=== PATIENT | male | born 1995 | race Caucasian/White ===

== ENCOUNTER 2016-11-12 05:33 | Emergency (ER) | payer MEDICAID ==
[2016-11-12 06:05] VITALS: O2SAT 100
--- NOTE | 2016-11-12 07:27 | ED PDOC ---
HPI: CCC, URI, Sore Throat Time Seen by Provider: 11/12/16 07:06 Chief Complaint (Nursing): ENT Problem Chief Complaint (Provider): ENT Problem History Per: Patient History/Exam Limitations: no limitations Onset/Duration Of Symptoms: Days Current Symptoms Are (Timing): Still Present Location Of Pain: Throat Sick Contacts (Context): None Associated Symptoms: Fever, Cough, Sputum Ear Symptoms: Bilateral: None Severity: Moderate Additional Complaint(s): Patient is a 21 year old male who presents to ED for evaluation of a sore throat for 2 days. Patient states pain is moderate -severe, unable to swallow or eat secondary to pain. Patient also notes a fever and cough, with occasional blood tinged sputum. Denies chest pain or shortness of breath. Denies neck pain , rash, abdominal pain, nausea or vomiting. Past Medical History Reviewed: Historical Data, Nursing Documentation, Vital Signs Vital Signs: Last Vital Signs Temp 99.2 F 11/12/16 09:00 Pulse 88 11/12/16 09:00 Resp 14 11/12/16 09:00 BP 122/68 11/12/16 09:00 Pulse Ox 100 11/12/16 09:14 - Medical History PMH: Asthma Denies: Chronic Kidney Disease - Surgical History Surgical History: No Surg Hx - Family History Family History: States: Unknown Family Hx - Living Arrangements Living Arrangements: With Family - Home Medications Home Medications: Ambulatory Orders Medication Instructions Recorded No Known Home Med 02/05/16 - Allergies Allergies/Adverse Reactions: Allergies Allergy/AdvReac Type Severity Reaction Status Date / Time No Known Allergies Allergy Verified 07/08/16 11:35 Review of Systems Constitutional: Positive for: Fever, Chills ENT: Positive for: Throat Pain, Throat Swelling. Negative for: Ear Pain Cardiovascular: Negative for: Chest Pain Respiratory: Positive for: Cough, Sputum. Negative for: Shortness of Breath Gastrointestinal: Negative for: Nausea, Vomiting, Abdominal Pain, Constipation Genitourinary Male: Negative for: Dysuria Musculoskeletal: Negative for: Neck Pain Skin: Negative for: Rash Physical Exam - Reviewed Nursing Documentation Reviewed: Yes Vital Signs Reviewed: Yes - Physical Exam Appears: Positive for: Non-toxic, No Acute Distress (well appearing, resting in bed in NAD, normal phonation) Skin: Positive for: Normal Color, Warm. Negative for: Rash Eye Exam: Positive for: Normal appearance ENT: Positive for: TM Is/Are (clear bilaterally ), Pharyngeal Erythema, Tonsillar Exudate, Other (uvula midline). Negative for: Tonsillar Swelling Neck: Positive for: Normal, Painless ROM, Supple (tender cervical LAD) Cardiovascular/Chest: Positive for: Tachycardia. Negative for: Murmur Respiratory: Positive for: Normal Breath Sounds. Negative for: Respiratory Distress Gastrointestinal/Abdominal: Positive for: Soft. Negative for: Tenderness, Mass , Distended Extremity: Positive for: Normal ROM Neurologic/Psych: Positive for: Alert, Oriented - ECG O2 Sat by Pulse Oximetry: 100 (RA) Pulse Ox Interpretation: Normal Medical Decision Making Medical Decision Making: Time: 0710 Initial impression: Strep vs viral pharyngitis Initial plan: -- Rapid strep -- Motrin PO Patient has fever, tender cervical LAD and exudate and therefore will treat as strep pharyngitis. Will give penicillin IM in ED. Scribe Attestation: Documented by Humaira Calderón acting as a scribe for Ena Powers MD MD Scribe Attestation: All medical record entries made by the Scribe were at my direction and personally dictated by me. I have reviewed the chart and agree that the record accurately reflects my personal performance of the history, physical exam, medical decision making, and the department course for this patient. I have also personally directed, reviewed, and agree with the discharge instructions and disposition. 9:13AM On reevaluation after motrin, patient is eating tray in bed and well appearing. He is phonating normally with normal vitals. He reports feeling better. Will dc to follow-up with PMD. Disposition - Clinical Impression Clinical Impression: Streptococcal sore throat - Disposition Disposition: Routine/Home Disposition Time: 07:30 Condition: GOOD Additional Instructions: Tylenol or motrin for pain. Follow-up with PMD within 2 days. Return to ED if condition worsens. Instructions: Strep Throat (ED) Forms: [facility] ED School/Work Excuse
[2016-11-12] MEDS ORDERED: Penicillin G Benzathine 1.2 Mill Unit/2 ml Syr IM ONE (08:48)
[2016-11-12 09:39] VITALS: BP 122/68; PULSE 88; RESP 14; TEMP 99.2
== END 2016-11-12 10:09 | disposition home or self-care (01) ==
LOC: H.ER 05:33
DX: J02.0 Streptococcal pharyngitis (principal); J45.909 Unspecified asthma, uncomplicated; R50.9 Fever, unspecified
CPT/HCPCS: 87070; 87430; 96372; 99283; J0561

== ENCOUNTER 2016-11-13 04:13 | Emergency (ER) | payer MEDICAID ==
[2016-11-13] MEDS ORDERED: Sodium Chloride 0.9% 1,000 ML IV STA (04:45)
--- NOTE | 2016-11-13 05:27 | ED PDOC ---
HPI: General Adult Time Seen by Provider: 11/13/16 04:30 Chief Complaint (Nursing): ENT Problem Chief Complaint (Provider): sore throat History Per: Patient History/Exam Limitations: no limitations Onset/Duration Of Symptoms: Hrs Have you had recent travel within the past 21 days to any of the following countries: [place], [place], [place] or [place]?: No Current Symptoms Are (Timing): Still Present Recently: Seen In ED Additional Complaint(s): 21yo male returns to the ED with c/o sore throat with associated difficulty swallowing. Patient was seen in this ED at 0700 yesterday and discharged with diagnosis of strep throat. Patient was given IM penicillin in the ED prior to d/ c. Patient further reports having fever with difficulty swallowing Tylenol tablets at home. Notes some mild difficulty breathing. Past Medical History Reviewed: Historical Data, Nursing Documentation, Vital Signs Vital Signs: Last Vital Signs Temp 99.8 F H 11/13/16 06:07 Pulse 90 11/13/16 06:07 Resp 20 11/13/16 06:07 BP 131/54 L 11/13/16 06:07 Pulse Ox 99 11/13/16 06:13 - Medical History PMH: Asthma Denies: Chronic Kidney Disease - Surgical History Surgical History: No Surg Hx - Family History Family History: States: Unknown Family Hx - Home Medications Home Medications: Ambulatory Orders Medication Instructions Recorded Ibuprofen [Motrin Tab] 600 mg PO Q6 #30 tab 11/13/16 predniSONE [predniSONE Tab] 40 mg PO DAILY #6 tab 11/13/16 - Allergies Allergies/Adverse Reactions: Allergies Allergy/AdvReac Type Severity Reaction Status Date / Time No Known Allergies Allergy Verified 07/08/16 11:35 Review of Systems ROS Statement: Except As Marked, All Systems Reviewed And Found Negative Constitutional: Positive for: Fever ENT: Positive for: Throat Pain, Other (difficulty swallowing ) Respiratory: Positive for: Other (mild difficulty breathing ) Physical Exam - Reviewed Nursing Documentation Reviewed: Yes Vital Signs Reviewed: Yes - Physical Exam Appears: Positive for: Well, No Acute Distress Head Exam: Positive for: ATRAUMATIC, NORMAL INSPECTION, NORMOCEPHALIC Skin: Positive for: Normal Color, Warm, Dry Eye Exam: Positive for: Normal appearance, EOMI, PERRL ENT: Positive for: Tonsillar Exudate (left sided ), Tonsillar Swelling (b/l enlarged tonsils ), Other (no palpable CLINIQUE COUNTER MANAGER, (+) tender lymphadenopathy ) Neck: Positive for: Normal, Painless ROM, Supple Cardiovascular/Chest: Positive for: Regular Rate, Rhythm. Negative for: Murmur , Tachycardia Respiratory: Positive for: Normal Breath Sounds. Negative for: Wheezing, Respiratory Distress Gastrointestinal/Abdominal: Positive for: Normal Exam, Soft. Negative for: Tenderness Back: Positive for: Normal Inspection Extremity: Positive for: Normal ROM. Negative for: Deformity, Swelling Neurologic/Psych: Positive for: Alert, Oriented - ECG O2 Sat by Pulse Oximetry: 99 Pulse Ox Interpretation: Normal (RA) Medical Decision Making Medical Decision Makin: Impression: strep throat Plan: IVF, solu-medrol 125mg IVP, Toradol 15mg IVP, Tylenol 650mg PO reassess 0612: Patient feeling better and is stable for d/c. Instructed to return to the ED with any worsening or concerning symptoms. Scribe Attestation: Documented by Vani Rodriguez acting as a scribe for González Barrett MD. Provider Scribe Attestation: All medical record entries made by the Scribe were at my direction and personally dictated by me. I have reviewed the chart and agree that the record accurately reflects my personal performance of the history, physical exam, medical decision making, and the department course for this patient. I have also personally directed, reviewed, and agree with the discharge instructions and disposition. Disposition - Clinical Impression Clinical Impression: Strep throat - Patient ED Disposition Is Patient to be Admitted: No - Disposition Referrals: [facility] [Outside] Disposition: Routine/Home Disposition Time: 06:13 Condition: STABLE Prescriptions: Ibuprofen [Motrin Tab] 600 mg PO Q6 #30 tab predniSONE [predniSONE Tab] 40 mg PO DAILY #6 tab Instructions: Strep Throat (ED)
[2016-11-13 06:08] VITALS: BP 131/54; PULSE 90; RESP 20; TEMP 99.8
[2016-11-13 06:13] VITALS: O2SAT 99
== END 2016-11-13 07:11 | disposition home or self-care (01) ==
LOC: H.ER 04:13
DX: J02.0 Streptococcal pharyngitis (principal); J45.909 Unspecified asthma, uncomplicated
CPT/HCPCS: 96374; 96375; 99282; J1885; J2930; J7040

== ENCOUNTER 2017-03-24 11:26 | Emergency (ER) | payer SELFPAY ==
[2017-03-24 11:52] VITALS: RESP 18; TEMP 97.8
--- NOTE | 2017-03-24 13:37 | ED PDOC ---
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 after ext Severity: Mild Previous Symptoms: None Associated Symptoms: None, Other (no n/t/w no bowel or bladder retention or incontinence) Exacerbating Factor(s): Movement, Other (lifting leg) Additional History Per: Patient Additional Complaint(s): pt states mild intermittent anxiety Past Medical History Reviewed: Historical Data, Nursing Documentation, Vital Signs Vital Signs: Last Vital Signs Temp 97.8 F 03/24/17 11:48 Pulse 66 03/24/17 11:48 Resp 18 03/24/17 11:48 BP 121/76 03/24/17 11:48 Pulse Ox 100 03/24/17 11:48 - Medical History PMH: Asthma Denies: Chronic Kidney Disease - Family History Family History: States: Unknown Family Hx - Living Arrangements Living Arrangements: With Family - Social History Current smoker - smoking cessation education provided: No - Home Medications Home Medications: Ambulatory Orders Medication Instructions Recorded Naproxen 500 mg PO BID PRN #20 tab 03/24/17 - Allergies Allergies/Adverse Reactions: Allergies Allergy/AdvReac Type Severity Reaction Status Date / Time No Known Allergies Allergy Verified 03/24/17 11:52 Review of Systems ROS Statement: Except As Marked, All Systems Reviewed And Found Negative Constitutional: Negative for: Fever, Chills Cardiovascular: Positive for: Chest Pain. Negative for: Palpitations, Edema, Light Headedness Respiratory: Negative for: Cough, Shortness of Breath Gastrointestinal: Negative for: Nausea, Vomiting, Abdominal Pain Musculoskeletal: Positive for: Back Pain Neurological: Negative for: Weakness, Numbness, Altered Mental Status, Headache Psych: Positive for: Anxiety. Negative for: Depression, Psychosis, Suicidal ideation Physical Exam - Reviewed Nursing Documentation Reviewed: Yes Vital Signs Reviewed: Yes - Physical Exam Appears: Positive for: Uncomfortable Head Exam: Positive for: ATRAUMATIC, NORMAL INSPECTION, NORMOCEPHALIC Eye Exam: Positive for: Normal appearance Neck: Positive for: Normal, Painless ROM, Supple. Negative for: Decreased ROM, Limited ROM, Trachea Midline Cardiovascular/Chest: Positive for: Regular Rate, Rhythm, Chest Non Tender. Negative for: Edema, Gallop Respiratory: Positive for: Normal Breath Sounds. Negative for: Decreased Breath Sounds, Accessory Muscle Use, Crackles, Rales, Rhonchi, Stridor, Wheezing , Respiratory Distress Pulses-Radial (L): 2+ Pulses-Radial (R): 2+ Gastrointestinal/Abdominal: Positive for: Normal Exam, Bowel Sounds, Soft. Negative for: Tenderness Back: Positive for: Normal Inspection. Negative for: L CVA Tenderness, R CVA Tenderness, Vertebral Tenderness, Decreased ROM Extremity: Positive for: Normal ROM, Other (+ slr on the left). 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 Negative for: Motor/Sensory Deficits - ECG O2 Sat by Pulse Oximetry: 100 Pulse Ox Interpretation: Normal - Other Rad No standard instances X-Ray: Interpreted by Me X-Ray Interpretation: ls xray 5 views no fx or listhesis no sts - Progress ED Course And Treament: sx improved with treatment advise close f/u in medical clinic, naproxen for pain Re-evaluation Time: 14:30 Condition: Improved Disposition - Clinical Impression Clinical Impression: Low back pain, Anxiety - Patient ED Disposition Is Patient to be Admitted: No Counseled Patient/Family Regarding: Studies Performed, Diagnosis, Need For Followup, Rx Given - Disposition Referrals: [facility] [Outside] [facility] [Outside] Disposition: Routine/Home Disposition Time: 14:30 Condition: GOOD Prescriptions: Naproxen 500 mg PO BID PRN #20 tab PRN Reason: Pain, Moderate (4-7) Instructions: Sciatica (ED), Anxiety (ED) Forms: [facility] ([place]ian)
[2017-03-24 15:59] VITALS: BP 123/70; PULSE 68; O2SAT 99
--- NOTE | 2017-03-24 16:13 | RAD ---
PROCEDURE: Radiographs of the Lumbar Spine. HISTORY: Trauma COMPARISON: Comparison made with CT scan of the abdomen and pelvis dated 10/10/2014 which also image the lumbar spine in 3 planes. FINDINGS: BONES: No acute compression fractures no retropulsed fragments. Vertebral bodies exhibit normal stature. Vertebral bodies and facets normally aligned. DISC SPACES: Disc space heights maintained. . OTHER FINDINGS: And incidental note made of what appears represent a in situ pain stimulator within the lower thoracic region. Additionally, there are at least 3 radiopaque structures overlying the right posteromedial lung base consistent with embolization hardware. Clinical correlation with surgical history recommended. IMPRESSION: No acute fractures. . See above discussion for additional incidental findings.
== END 2017-03-24 16:02 | disposition home or self-care (01) ==
LOC: H.ER 11:26
DX: M54.5 Low back pain (principal); F41.9 Anxiety disorder, unspecified
CPT/HCPCS: 72114; 96372; 99282; J1885

== ENCOUNTER 2018-04-07 08:31 | Emergency (ER) | payer MEDICAID, OTHER ==
[2018-04-07 08:35] VITALS: RESP 18
[2018-04-07 08:36] VITALS: BMI 26.9
[2018-04-07] MEDS ORDERED: Sodium Chloride 0.9% 1,000 ML IV STA (08:51)
[2018-04-07] MEDS ORDERED: Iohexol 240 (50 ml) PO ONE (08:51)
--- NOTE | 2018-04-07 08:56 | ED PDOC ---
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 Patient reports associated nausea, and an episode of vomiting. Patient states he has not gone to the bathroom since last night; denies any urinary symptoms or fevers. No other complaints. Past Medical History Reviewed: Historical Data, Nursing Documentation, Vital Signs Vital Signs: Last Vital Signs Temp 98.5 F 04/07/18 08:35 Pulse 75 04/07/18 08:35 Resp 18 04/07/18 08:35 BP 130/83 04/07/18 08:35 Pulse Ox 97 04/07/18 08:35 - Medical History PMH: Asthma Denies: Chronic Kidney Disease - Surgical History Other surgeries: pulmonary artery stent - Family History Family History: States: No Known Family Hx - Home Medications Home Medications: Ambulatory Orders Medication Instructions Recorded Naproxen 500 mg PO BID PRN #20 tab 03/24/17 traMADol [Ultram] 50 mg PO Q8 #10 tab 04/07/18 - Allergies Allergies/Adverse Reactions: Allergies Allergy/AdvReac Type Severity Reaction Status Date / Time No Known Allergies Allergy Verified 03/24/17 11:52 Review of Systems ROS Statement: Except As Marked, All Systems Reviewed And Found Negative Constitutional: Negative for: Fever, Chills Gastrointestinal: Positive for: Vomiting, Abdominal Pain, Other (right inguinal pain) Genitourinary Male: Negative for: Dysuria Physical Exam - Reviewed Nursing Documentation Reviewed: Yes Vital Signs Reviewed: Yes - Physical Exam Appears: Positive for: Non-toxic Head Exam: Positive for: ATRAUMATIC, NORMAL INSPECTION, NORMOCEPHALIC Skin: Positive for: Normal Color Eye Exam: Positive for: Normal appearance Neck: Positive for: Normal, Supple Cardiovascular/Chest: Positive for: Regular Rate, Rhythm Respiratory: Positive for: Normal Breath Sounds Gastrointestinal/Abdominal: Positive for: Soft, Tenderness (right lower quadrant tenderness). Negative for: Mass, Guarding, Rebound Male Genital Exam: Positive for: inguinal tenderness (right). Negative for: hernia mass, testicular tenderness (R) Back: Positive for: Normal Inspection Extremity: Positive for: Normal ROM Neurologic/Psych: Positive for: Alert, Oriented - Laboratory Results Result Diagrams: 04/07/18 09:20 04/07/18 09:20 - ECG O2 Sat by Pulse Oximetry: 97 (RA) Pulse Ox Interpretation: Normal Medical Decision Making Medical Decision Making: Impression: 22yo male with right lower quadrant and right inguinal pain Plan: * Labs * IV Fluids * Toradol 30mg IV * Zofran 4mg IV * CT Abdomen/Pelvis w/ PO & IV Contrast Scribe Attestation: Documented by Muriel Hurt, acting as a scribe for Allen Chavarria MD. Provider Scribe Attestation: All medical record entries made by the Scribe were at my direction and personally dictated by me. I have reviewed the chart and agree that the record accurately reflects my personal performance of the history, physical exam, medical decision making, and the department course for this patient. I have also personally directed, reviewed, and agree with the discharge instructions and disposition. Disposition - Clinical Impression Clinical Impression: Inguinal hernia - Patient ED Disposition Is Patient to be Admitted: No Counseled Patient/Family Regarding: Studies Performed, Diagnosis, Need For Followup, Rx Given - Disposition Referrals: Star Lainez MD [Staff Provider] - Disposition: Routine/Home Disposition Time: 12:55 Condition: FAIR Prescriptions: traMADol [Ultram] 50 mg PO Q8 #10 tab Instructions: Inguinal and Femoral (Groin) Hernias
[2018-04-07] MEDS ORDERED: Iohexol 240 (50 ml) ONE (08:59)
[2018-04-07 09:54] LABS: BASO % 0.3 % (0.0-2.0); EOS # 0.1 K/uL (0.0-0.7); EOS % 0.8 % (0.0-4.0); HEMOGLOBIN 15.4 g/dL (12.0-18.0); LYMPH # 1.7 K/uL (1.0-4.3); LYMPH % 16.7 % (20.0-40.0); MEAN CELL VOLUME 88.2 fl (80.0-94.0); MEAN CORPUSCULAR HEMOGLOBIN 30.8 pg (27.0-31.0); MEAN PLATELET VOLUME 7.3 fl (7.2-11.7); MONO # 0.7 K/uL (0.0-0.8); MONO % 6.9 % (0.0-10.0); NEUT # 7.7 K/uL (1.8-7.0); NEUT % 75.3 % (50.0-75.0); RBC 5.01 Mil/uL (4.40-5.90); RED CELL DISTRIBUTION WIDTH 12.6 % (11.5-14.5); WHITE BLOOD COUNT 10.2 K/uL (4.8-10.8)
[2018-04-07 10:01] LABS: ALB/GLOB RATIO 1.4 (1.0-2.1); ALBUMIN 4.6 g/dL (3.5-5.0); ALT/SGPT 35 U/L (21-72); AST/SGOT 25 U/L (17-59); BLOOD UREA NITROGEN 14 mg/dl (9-20); CALCIUM 9.1 mg/dL (8.4-10.2); GFR NON-AFRICAN AMERICAN > 60
[2018-04-07] MEDS ORDERED: Iohexol 300 100 ML IJ ONE (11:31)
[2018-04-07] MEDS ORDERED: Sodium Chloride 0.9% 50 ML IV ONE (11:31)
--- NOTE | 2018-04-07 12:50 | CT ---
Date of service: 04/07/2018 PROCEDURE: CT Abdomen and Pelvis with contrast HISTORY: abd pain COMPARISON: Abdomen pelvis CT with contrast 10/10/2014. TECHNIQUE: Following oral and intravenous contrast administration, a CT examination of the abdomen and pelvis performed from the domes of the diaphragms to the symphysis pubis with reformatted datasets provided not only axial but also sagittal and coronal series. Coronal and sagittal reformats were generated. contrast dose: Omnipaque 300, 95 cc Radiation dose: Total exam DLP = 383.70 mGy-cm. This CT exam was performed using one or more of the following dose reduction techniques: Automated exposure control, adjustment of the mA and/or kV according to patient size, and/or use of iterative reconstruction technique. 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 No acute findings. LIVER: Hepatic steatosis reiterated without focal mass. No intrahepatic biliary dilatation identified. GALLBLADDER AND BILE DUCTS: Cholelithiasis is identified once again within a mildly distended gallbladder. No acute findings. PANCREAS: Unremarkable. No gross lesion or ductal dilatation. SPLEEN: Unremarkable. ADRENALS: Unremarkable. No mass. KIDNEYS AND URETERS: Unremarkable. No hydronephrosis. No solid mass. VASCULATURE: Unremarkable. No aortic aneurysm. BOWEL: Stomach appears unremarkable. There is no bowel obstruction, mesenteric edema or ascites identified. Appendix is normal. The descending colon is collapsed. Submucosal fatty changes at the left hemicolon may indicate inflammatory bowel process on a chronic basis. Small bowel loops appear unremarkable throughout. APPENDIX: Normal appendix. PERITONEUM: Unremarkable. No free fluid. No free air. LYMPH NODES: Unremarkable. No enlarged lymph nodes. BLADDER: Unremarkable. REPRODUCTIVE: Unremarkable. BONES: No acute fracture. OTHER FINDINGS: None. IMPRESSION: 1. No definite acute abdominal pelvic findings as discussed above. 2. Hepatic steatosis. 3. Cholelithiasis. 4. Submucosal fatty deposition at the left hemicolon may indicate inflammatory bowel process on a chronic basis. Clinically correlate further. Bowel collapse and lack of oral contrast transit to this level limit the evaluation.
[2018-04-07 13:50] VITALS: BP 128/74; PULSE 82; TEMP 98.7; O2SAT 100
== END 2018-04-07 13:45 | disposition home or self-care (01) ==
LOC: H.ER 08:31
DX: K40.90 Unilateral inguinal hernia, without obstruction or gangrene, not specified as recurrent (principal)
CPT/HCPCS: 74177; 80053; 85025; 96374; 96375; 96376; 99283; J1885; J2405; J7030; Q9966; Q9967

== ENCOUNTER 2018-05-15 00:13 | Emergency (ER) | payer SELFPAY ==
[2018-05-15 00:15] VITALS: BMI 26.9
[2018-05-15 00:23] VITALS: BP 109/67; PULSE 85; RESP 18; O2SAT 100
[2018-05-15] MEDS ORDERED: Lidocaine 2% Inj (20ml) INFIL ONE (00:28)
[2018-05-15] MEDS ORDERED: Lidocaine PF 2% (5 ml) Inj (For Cardiac Arrhy) ONE (00:36)
--- NOTE | 2018-05-15 00:54 | ED PDOC ---
Upper Extremity Pain/Injury Time Seen by Provider: 05/15/18 00:28 Chief Complaint (Nursing): Abnormal Skin Integrity Chief Complaint (Provider): left hand injury History Per: Patient (22 y/o male here for evaluation of left hand laceration today at 6pm after injuring self with broken glass. Believes tetanus up to date.) Past Medical History Reviewed: Historical Data, Nursing Documentation, Vital Signs Vital Signs: Last Vital Signs Temp 97.5 F L 05/15/18 00:20 Pulse 85 05/15/18 00:20 Resp 18 05/15/18 00:20 BP 109/67 05/15/18 00:20 Pulse Ox 100 05/15/18 00:20 - Medical History PMH: Asthma Denies: Chronic Kidney Disease - Family History Family History: States: Unknown Family Hx - Home Medications Home Medications: Ambulatory Orders Medication Instructions Recorded Naproxen 500 mg PO BID PRN #20 tab 03/24/17 traMADol [Ultram] 50 mg PO Q8 #10 tab 04/07/18 - Allergies Allergies/Adverse Reactions: Allergies Allergy/AdvReac Type Severity Reaction Status Date / Time No Known Allergies Allergy Verified 05/15/18 00:20 Review of Systems ROS Statement: Except As Marked, All Systems Reviewed And Found Negative Physical Exam - Reviewed Nursing Documentation Reviewed: Yes Vital Signs Reviewed: Yes - Physical Exam Appears: Positive for: Well, Non-toxic, No Acute Distress Head Exam: Positive for: ATRAUMATIC, NORMAL INSPECTION, NORMOCEPHALIC Skin: Positive for: Normal Color, Warm, DRY Eye Exam: Positive for: EOMI, Normal appearance, PERRL ENT: Positive for: Normal ENT Inspection Neck: Positive for: Normal, Painless ROM Cardiovascular/Chest: Positive for: Regular Rate, Rhythm Respiratory: Positive for: CNT, Normal Breath Sounds Gastrointestinal/Abdominal: Positive for: Normal Exam, Soft Back: Positive for: Normal Inspection Extremity: Positive for: Normal ROM Neurologic/Psych: Positive for: Alert, Oriented - ECG O2 Sat by Pulse Oximetry: 100 Disposition - Clinical Impression Clinical Impression: Finger laceration - Patient ED Disposition Is Patient to be Admitted: No - Disposition Disposition: Routine/Home Disposition Time: 00:54 Condition: FAIR Additional Instructions: FOLLOW UP WITH ED /URGENT CARE/PMD IN 7 TO 10 DAYS FOR SUTURE REMOVAL Instructions: Laceration Repair With Stitches (DC) Forms: [facility] ED School/Work Excuse Procedure: Wound Repair - Time Performed Time Performed: 00:40 - Time Out Time Out: Site verified - Consent Obtained Consent obtained: Verbal - Performed by Performed by: Mid-level Provider - Indications Indication(s):: Laceration - Location Location:: Left, Hand Finger:: Middle Shape:: Linear Dimensions Length cm: 1.25cm Depth:: Epidermis - Anesthetic Technique Anesthetic Technique: Regional block Local/Regional Anesthetic:: Lidocaine 2% - Debris Debris:: None - Irrigated Irrigated with ml of normal saline: 150 sterile water - Complexity Complexity:: Simple (one layer) - Wound repair method Sutures:: # (three), Size (5-0), Type (prolene), Technique (interrupted) - Patient tolerated procedure Patient Tolerated Procedure:: Well
[2018-05-15 01:34] VITALS: TEMP 97.8
== END 2018-05-15 01:07 | disposition home or self-care (01) ==
LOC: H.ER 00:13
DX: S61.212A Laceration without foreign body of right middle finger without damage to nail, initial encounter (principal); W25.XXXA Contact with sharp glass, initial encounter; Y92.89 Other specified places as the place of occurrence of the external cause

== ENCOUNTER 2018-05-31 17:54 | Emergency (ER) | payer OTHER ==
[2018-05-31 17:54] VITALS: BMI 26.9
[2018-05-31 18:13] VITALS: BP 111/73; PULSE 87; RESP 18; TEMP 98.2; O2SAT 99
--- NOTE | 2018-05-31 18:53 | ED PDOC ---
HPI: Wound Care - HPI Time Seen by Provider: 05/31/18 18:31 Chief Complaint (Nursing): Suture/Staple Removal History Per: Patient Additional Complaint(s): Pt. had sutures placed on L 4th digit on 05/15/2018 and is now here for removal. Offers no complaints at this time. Denies fever, discharge. Past Medical History Reviewed: Historical Data, Nursing Documentation, Vital Signs Vital Signs: Last Vital Signs Temp 98.2 F 05/31/18 18:10 Pulse 87 05/31/18 18:10 Resp 18 05/31/18 18:10 BP 111/73 05/31/18 18:10 Pulse Ox 99 05/31/18 18:10 - Medical History PMH: Asthma Denies: Chronic Kidney Disease - Family History Family History: States: Unknown Family Hx - Home Medications Home Medications: Ambulatory Orders Medication Instructions Recorded RX: Naproxen 500 mg PO BID PRN #20 tab 03/24/17 RX: traMADol [Ultram] 50 mg PO Q8 #10 tab 04/07/18 - Allergies Allergies/Adverse Reactions: Allergies Allergy/AdvReac Type Severity Reaction Status Date / Time No Known Allergies Allergy Verified 05/31/18 18:10 Review of Systems ROS Statement: Except As Marked, All Systems Reviewed And Found Negative Physical Exam - Physical Exam Appears: Positive for: Well, Non-toxic, No Acute Distress Skin: Positive for: Normal Color, Warm. Negative for: Rash Eye Exam: Positive for: Normal appearance Pulses-Radial (L): 2+ Pulses-Radial (R): 2+ Extremity: Positive for: Other (L 3rd PIP on palmar surface with multiple healing sutures in place with minimal dehisence without erythema, discharge, or swelling; L 3rd digit with FROM acitvely and with cap refill < 2 seconds) Neurologic/Psych: Positive for: Alert, Oriented (x3) - ECG O2 Sat by Pulse Oximetry: 99 - Progress ED Course And Treament: Informed of slight dehisence and informed that sutures have been placed for a prolonged period. Pt. prefers to wait an extra 2 days to make sure sutures heal properly. Informed that prolonged placement of sutures may cause infection. Pt. refused suture removal and will return to ED in 2 days for removal. Disposition - Clinical Impression Clinical Impression: Visit for wound check - Patient ED Disposition Is Patient to be Admitted: No - Disposition Disposition: Routine/Home Disposition Time: 18:52 Condition: STABLE Additional Instructions: Return to ED in 2 days without fail for suture removal. LAUREN LOUIE, thank you for letting us take care of you today. Your provider was Lisha Campbell MD and you were treated for SUTURE REMOVAL. The emergency medical care you received today was directed at your acute symptoms. If you were prescribed any medication, please fill it and take as directed. It may take several days for your symptoms to resolve. Return to the Emergency Department if your symptoms worsen, do not improve, or if you have any other problems. Please contact your doctor or call one of the physicians/clinics you have been referred to that are listed on the Patient Visit Information form that is included in your discharge packet. Bring any paperwork you were given at discharge with you along with any medications you are taking to your follow up visit. Our treatment cannot replace ongoing medical care by a primary care provider outside of the emergency department. Thank you for allowing the [facility] team to be part of your care today. If you had an X-Ray or CT scan: A Radiologist will review the ED reading if any change in treatment is needed we will contact you. If you had a blood, urine, or wound culture: It will take several days for the results, if any change in treatment is needed we will contact you. If you had an STI test: It will take 48 hours for the results. Please call after 1 week if you have not heard back. Instructions: Wound Care (DC) Forms: [employer] (Spanish) Print Language: DANISH
== END 2018-05-31 19:46 | disposition home or self-care (01) ==
LOC: H.ER 17:54
DX: Z00.8 Encounter for other general examination (principal)

== ENCOUNTER 2018-06-29 08:56 | Emergency (ER) | payer OTHER ==
[2018-06-29 09:02] VITALS: BMI 28.1
[2018-06-29 09:03] VITALS: BP 117/61; PULSE 91; RESP 20; TEMP 98.7; O2SAT 99
[2018-06-29] MEDS ORDERED: Sodium Chloride 0.9% 1,000 ML IV STA (09:48)
[2018-06-29 10:59] LABS: BASO % 0.6 % (0.0-2.0); EOS # 0.1 K/uL (0.0-0.7); LYMPH # 1.8 K/uL (1.0-4.3); LYMPH % 26.8 % (20.0-40.0); MEAN CELL VOLUME 88.7 fl (80.0-94.0); MEAN CORPUSCULAR HEMOGLOBIN 30.3 pg (27.0-31.0); MEAN CORPUSCULAR HGB CONC 34.2 g/dL (33.0-37.0); MEAN PLATELET VOLUME 6.8 fl (7.2-11.7); MONO # 0.6 K/uL (0.0-0.8); MONO % 8.6 % (0.0-10.0); NEUT # 4.2 K/uL (1.8-7.0); NRBC % 0.2 % (0.0-0.0); RBC 4.95 Mil/uL (4.40-5.90); RED CELL DISTRIBUTION WIDTH 12.8 % (11.5-14.5); WHITE BLOOD COUNT 6.8 K/uL (4.8-10.8)
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
[2018-06-29 11:13] LABS: BLOOD UREA NITROGEN 6 mg/dl (9-20); CALCIUM 8.8 mg/dL (8.4-10.2); GFR NON-AFRICAN AMERICAN > 60
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
[2018-06-29] MEDS ORDERED: Amoxicillin-Clav 875-125 mg Tab PO STA (12:10)
[2018-06-29] MEDS ORDERED: Amoxicillin-Clav 875-125 mg Tab PO ONE (13:12)
== END 2018-06-29 13:42 | disposition home or self-care (01) ==
LOC: H.ER 08:56
DX: R51 Headache (principal); R11.2 Nausea with vomiting, unspecified; S09.90XA Unspecified injury of head, initial encounter; J32.9 Chronic sinusitis, unspecified; J45.909 Unspecified asthma, uncomplicated
CPT/HCPCS: 70450; 80048; 85025; 87804; 96361; 96374; 96375; 99285; J1885; J2405; J7030